=== PATIENT | male | born 1945 | race African-American/Black ===

== ENCOUNTER 2020-04-19 08:18 | Outpatient (CLI) | payer MEDICARE, SELFPAY ==
--- NOTE | ~2020-04-19 | CT_ITS ---
EXAMINATION: CT abdomen pelvis wo/w con EXAM DATE: 04/19/2020 09:26 INDICATION: Gross hematuria. TECHNIQUE: Spiral CT of the abdomen and pelvis was performed without contrast. The patient was then injected with small bolus intravenous Omnipaque 350, followed by delay of approximately 10 minutes to allow collecting system to opacify. A post contrast scan abdomen and pelvis was performed during inj ection of remaining contrast. A total of 130 cc intravenous contrast was administered. The dose-abran th product (DLP) for this examination was 1434.01 mGy-cm. The exposure was tailored according to pat ient size (auto mA exposure control), and iterative reconstruction (ASIR) was used as additional dose reduction technique. There is no prior study for comparison. FINDINGS: Large bilateral nephrolithiasis, measuring up to 1.1 cm on the right and 1.0 cm on the left . There is a 7.5 cm cyst in the left kidney, and a 5.5 cm cyst in the right kidney. Other smaller re nal cysts bilaterally. The kidneys enhance symmetrically. There are no suspicious renal lesions. T he calyces and opacified portions of ureters are unremarkable, without filling defects or focal suspi cious strictures. The bladder is unremarkable. There is moderate prostatomegaly. The liver, spleen, adrenal glands and pancreas are unremarkable. Gallbladder is unremarkable. No bi liary obstruction. There is no retroperitoneal or pelvic lymphadenopathy. There is mild scattered arteriosclerotic disease. Small umbilical fat-containing hernia. The appendix is normal. The stomach and small bowel are unremarkable. There is expected amount of c olonic stool. No free intraperitoneal gas. The heart is normal in size. There are no pericardial or pleural effusions. The lung bases are unremarkable. There are no osteoblastic or osteolytic les ions identified. Mild thoracolumbar scoliosis. IMPRESSION: 1. Large bilateral nephrolithiasis. Large renal cysts. 2. Moderate prostatomegaly. Reviewed, dictated and finalized at location B. S COUNTER SALESPERSON
[2020-04-19 09:05] LABS: Estimated Glomerular Filt Rate 59
== END 2020-04-19 08:19 | disposition home or self-care (01) ==
PROVIDERS: PCP Internal Medicine; Visit Provider Urology
DX: R31.0 Gross hematuria (principal); N20.0 Calculus of kidney; N28.1 Cyst of kidney, acquired; N40.0 Benign prostatic hyperplasia without lower urinary tract symptoms
CPT/HCPCS: 74178; Q9967

== ENCOUNTER 2020-04-26 10:21 | Outpatient (CLI) | payer MEDICARE, SELFPAY ==
[2020-04-26 10:51] LABS: INR 0.9; Prothrombin Time 12.8 Seconds (11.1-14.7)
[2020-04-26 10:52] LABS: Partial Thromboplastin Time 28.3 SECONDS (22.3-36.8)
== END 2020-04-26 10:22 | disposition home or self-care (01) ==
LOC: ANHSURGERY 10:23
PROVIDERS: PCP Internal Medicine; Visit Provider Urology
DX: N20.0 Calculus of kidney (principal); Z01.818 Encounter for other preprocedural examination
CPT/HCPCS: 36415; 85610; 85730; 87086

== ENCOUNTER → 2020-04-30 02:20 | Outpatient (CLI) | payer MEDICARE, SELFPAY ==
[2020-04-30 22:46] LABS: SARS-CoV-2 RNA PCR Negative
== END ==
PROVIDERS: PCP Internal Medicine; Visit Provider Urology
DX: Z01.812 Encounter for preprocedural laboratory examination (principal); Z20.822 Contact with and (suspected) exposure to COVID-19
CPT/HCPCS: C9803; U0003; U0005

== ENCOUNTER 2020-05-03 01:39 | Day surgery (SDC) | payer MEDICARE, SELFPAY ==
[2020-04-24 08:27] VITALS: BMI 26.6
--- NOTE | 2020-04-26 07:31 | P.HP_ITS ---
History of Present Illness History of Present Illness Consent: Risks, benefits, and alternatives have been discussed and questions answered. Patient agrees to proceed with procedure. Chief complaint: bilat kidney stones Narrative: Trev Padron is a 74 year old male recently underwent evaluation for transient painless gross hematuria. Cystoscopy showed BPH. CT scan of the abdomen and pelvis revealed bilateral renal stones up to 1 cm in each kidney. After discussion of options he has elected for ESWL. He is aware of alternative treatment options including percutaneous nephrolithotomy and ureteroscopy with laser lithotripsy of stones. Review of Systems Cardiovascular: Cardiovascular: Denies chest pain, Denies lightheadedness, Denies palpitations and Denies dyspnea Respiratory: Respiratory: Denies dyspnea Gastrointestinal: Gastrointestinal: Denies diarrhea, Denies nausea and Denies vomiting Genitourinary: Genitourinary: Denies hematuria and Denies dysuria Endocrine: Endocrine: Denies palpitations [facility] Social History Social History Smoking status: Never smoker Substance use: never Additional living arrangements comments: Spiritual care concerns: No Meds Home Medications and Allergies Home Medications Medication Instructions Recorded Confirmed Type finasteride 5 mg PO QAM 04/24/20 04/24/20 History sildenafil 100 mg PO DAILY PRN 04/24/20 04/24/20 History Allergies Allergy/AdvReac Type Severity Reaction Status Date / Time No Known Allergies Allergy Verified 04/24/20 08:23 Exam Const: General: no acute distress Resp: Effort & Inspection: normal respiratory effort GI: Inspection: non-distended GI Palp: No abdominal tenderness and No Guarding due to palpation present (GI) Auscultation: normal bowel sounds Assessment and Plan Assessment and plan (1) Bilateral kidney stones: Code(s): N20.0 - Calculus of kidney Status: Acute Assessment and Plan: * right ESWL
[2020-05-03] VITALS (10 sets, daily range): BP systolic 95–148; BP diastolic 68–89; PULSE 55–73; RESP 10–20; TEMP 35.9–36.2; O2SAT 100
--- NOTE | ~2020-05-03 | XR_ITS ---
EXAMINATION: XR abdomen/kub 1V EXAM DATE: 05/03/2020 07:11 INDICATION: For lithotripsy. TECHNIQUE: Frontal projection of the upper abdomen, frontal projection lower abdomen/pelvis for inter pretation. Correlation is made to CT abdomen 04/19/2020. FINDINGS: There are large bilateral calyceal stones, larger stone burden on the left. Moderate to la rge amount of colonic stool. Nonobstructive bowel gas pattern. Mild to moderate bony degenerative nabila nges. IMPRESSION: Large bilateral nephrolithiasis. Reviewed, dictated and finalized at location D. ENGINEER
--- NOTE | 2020-05-03 07:24 | P.PNAN_ITS ---
Anes - Initial Pre Proc Eval Procedure: Operation Date: 05/03/20 09:00 Proposed Procedures p Right Renal Extracorporeal Shock Wave Lithotripsy - Az Webster MD Date/Time: 05/03/20 07:24 Surgeon: Az Webster MD Pre Op Diagnosis: bilat kidney stones Patient Data Age: 74 Gender: M Height: 5 ft 9 in Weight: 82 kg Allergies Allergy/AdvReac Type Severity Reaction Status Date / Time No Known Allergies Allergy Verified 04/24/20 08:23 Home Medications Medication Instructions Recorded Confirmed Type finasteride 5 mg PO QAM 04/24/20 04/24/20 History sildenafil 100 mg PO DAILY PRN 04/24/20 04/24/20 History Patient hx anesthesia problems: none Family hx anesthesia problems: none [facility] Past Medical History Medical History BPH (benign prostatic hyperplasia) Social History Social History Smoking status: Never smoker Substance use: never Living arrangements: with family Additional living arrangements comments: Spiritual care concerns: No Anes - Eval Final PreProcedure Day of Procedure 05/03/20 07:24 Patient weight: overweight Heart: regular rate and rhythm Lungs: clear to auscultation Airway: Mallampati scale class II Neurological: alert and oriented Last oral intake: >/= 8 hours ASA classification: II Emergent: no Anesthetic plan: proceed Anesthesia type and monitoring: general LMA and standard monitoring Informed Consent: The patient's anesthetic plan and its attendant risks and benefits were discussed with the patient/family/POA. Questions were solicited and answers provided to the satisfaction of the patient/family/POA.
[2020-05-03] MEDS: LACTATED RINGERS 1,000 ML 30 ML IV CONT (07:40)
--- NOTE | 2020-05-03 08:18 | WPDHPUPDATE1 ---
History and Physical Update Update Date/Time: 05/03/20 08:18 History and Physical has been reviewed, including an updated exam of the patient. There are NO changes in the patient's condition. Risks, benefits, and alternatives have been discussed and questions answered. Patient agrees to proceed with procedure.
[2020-05-03] MEDS: ceFAZolin 2 GM/D5W 50 ML 2 GM/50 ML BAG IVPB (08:48)
--- NOTE | 2020-05-03 09:13 | P.OP_ITS ---
Procedure Note - Detailed Date of procedure: 05/03/20 Pre-op diagnosis: Bilat kidney stones Post-op diagnosis: same (Same) Procedure performed: Right ESWL Description of procedure: The patient was brought to the operative suite where he was placed in the supine position on the Dornier lithotripsy table. The focal point of the lithotripter was placed at a 10mm right renal calculus. A total of 2500 shocks were delivered at a power setting of 4. There appeared to be good fragmentation of the stone. The patient tolerated the procedure well and was taken to the recovery room in good condition. Anesthesia: GLMA Surgeon: Az Webster MD Child & Adolescent Psychiatrist: None Drains: No Packing: No Pathology: none sent Complications: No immediate complications Condition: stable Disposition: PACU
[2020-05-03] MEDS: fentaNYL CITRATE INJ (*CRX) 100 MCG/2 ML VIAL 25 MCG IV PUSH ×2 (09:40→10:00)
== END 2020-05-03 11:44 | disposition home or self-care (01) ==
PROVIDERS: PCP Internal Medicine; Visit Provider Urology
PROC: (CPT 50590; principal; 2020-05-03 09:00)
DX: N20.0 Calculus of kidney (principal); N40.0 Benign prostatic hyperplasia without lower urinary tract symptoms
CPT/HCPCS: 50590; 74018; A9270; J0690; J1100; J2405; J2704; J3010; J7120

== ENCOUNTER 2020-05-13 10:58 | Outpatient (CLI) | payer MEDICARE, SELFPAY ==
--- NOTE | ~2020-05-13 | XR_ITS ---
XR abdomen/kub 1V 05/13/2020 11:27 Indication: Gross hematuria Procedure: KUB Comparison: 05/03/2020 Findings: There are bilateral renal stones. There is a calcification in the pelvis, corresponding to distal ureteral stones seen on prior CT examination. Bowel gas pattern nonobstructive with moderate c olonic fecal loading. Moderate lumbar spondylosis with levoscoliosis. Impression: 1: Distal left ureteral stone near the expected location of the UVJ measuring 6 mm. 2: Bilateral nephrolithiasis. Reviewed, dictated and finalized at location A. Impression: 1: Distal left ureteral stone near the expected location of the UVJ measuring 6 mm. 2: Bilateral nephrolithiasis.
== END 2020-05-13 10:59 | disposition home or self-care (01) ==
PROVIDERS: PCP Internal Medicine; Visit Provider Urology
DX: R31.0 Gross hematuria (principal); N20.2 Calculus of kidney with calculus of ureter
CPT/HCPCS: 74018

== ENCOUNTER 2020-05-27 10:56 | Outpatient (CLI) | payer MEDICARE, SELFPAY ==
--- NOTE | ~2020-05-27 | XR_ITS ---
EXAMINATION: XR abdomen/kub 1V EXAM DATE: 05/27/2020 11:19 INDICATION: Bilateral kidney stones, follow-up. TECHNIQUE: Frontal projection of the upper abdomen, frontal projection lower abdomen/pelvis for inter pretation. Comparison is made to prior examination from 05/13/2020. Correlation was made with CT 2020. FINDINGS: Previously seen left pelvic calcification suspected to be ureteral stone measuring about 5 mm, position unchanged. This was nonobstructing on prior CT, no hydronephrosis or delayed nephrogram . Large bilateral nephrolithiasis also present, although some of the stones are obscured by bowel gas . Right inferior calyceal calcification has more appearance of multiple small stone fragments as oppose d to its more dense and solid appearance on the previous exam, probably following lithotripsy. Nonobs tructive bowel gas pattern. Mild lumbar levoscoliosis. IMPRESSION: 1. Bilateral nephrolithiasis, suspect interval lithotripsy on the right. 2. Persistent distal left UVJ region calcification, nonobstructing or intermittently obstructing sto ne. Reviewed, dictated and finalized at location A. IMPRESSION: 1. Bilateral nephrolithiasis, suspect interval lithotripsy on the right. 2. Persistent distal left UVJ region calcification, nonobstructing or intermit tently obstructing stone.
== END 2020-05-27 10:57 | disposition home or self-care (01) ==
LOC: ANHIMG 11:00
PROVIDERS: PCP Internal Medicine; Visit Provider Urology
DX: N20.0 Calculus of kidney (principal)
CPT/HCPCS: 74018

== ENCOUNTER 2020-06-07 09:27 | Outpatient (CLI) | payer MEDICARE, SELFPAY ==
[2020-06-07 10:06] LABS: INR 0.9; Prothrombin Time 12.4 Seconds (11.1-14.7)
[2020-06-07 10:07] LABS: Partial Thromboplastin Time 27.2 SECONDS (22.3-36.8)
== END 2020-06-07 09:28 | disposition home or self-care (01) ==
LOC: ANHSURGERY 09:29
PROVIDERS: PCP Internal Medicine; Visit Provider Urology
DX: N20.0 Calculus of kidney (principal); Z01.818 Encounter for other preprocedural examination
CPT/HCPCS: 36415; 85610; 85730; 87086

== ENCOUNTER → 2020-06-11 03:45 | Outpatient (CLI) | payer MEDICARE, SELFPAY ==
[2020-06-11 20:31] LABS: SARS-CoV-2 RNA PCR Negative
== END ==
PROVIDERS: PCP Internal Medicine; Visit Provider Urology
DX: Z01.812 Encounter for preprocedural laboratory examination (principal); Z20.822 Contact with and (suspected) exposure to COVID-19
CPT/HCPCS: C9803; U0003; U0005

== ENCOUNTER 2020-06-14 02:02 | Day surgery (SDC) | payer MEDICARE, SELFPAY ==
[2020-05-31 13:57] VITALS: BMI 26.6
--- NOTE | 2020-06-06 08:16 | PM.HPGS ---
History of Present Illness History of Present Illness Consent: Risks, benefits, and alternatives have been discussed and questions answered. Patient agrees to proceed with procedure. Chief complaint: Renal Stones Narrative: Trev Padron Sr. is a 74 year old male with a history of recurring urolithiasis. He recently presented with bilateral renal calculi and has undergone 1 ESWL to a large stone in his right kidney. Follow-up imaging shows fragmentation but several persistent pieces at a failed to pass. After discussion of options he has elected to proceed with a 2nd right ESWL before intervening for the stones in his left kidney. He is aware the risk of this procedure including, but not limited to, injury to the kidney with perinephric hematoma, persistent stone fragments. Review of Systems Cardiovascular: Cardiovascular: Denies chest pain, Denies lightheadedness, Denies palpitations and Denies dyspnea Respiratory: Respiratory: Denies dyspnea Gastrointestinal: Gastrointestinal: Denies diarrhea, Denies nausea and Denies vomiting Genitourinary: Genitourinary: Denies hematuria and Denies dysuria Endocrine: Endocrine: Denies palpitations [facility] Past Medical History Medical History BPH (benign prostatic hyperplasia) Social History Social History Smoking status: Never smoker Second hand tobacco smoke exposure: No Substance use: never Substance use type: does not use Additional living arrangements comments: Spiritual care concerns: No Meds Home Medications and Allergies Home Medications Medication Instructions Recorded Confirmed Type finasteride 5 mg PO QAM 04/24/20 05/31/20 History sildenafil 100 mg PO DAILY PRN 04/24/20 05/31/20 History Allergies Allergy/AdvReac Type Severity Reaction Status Date / Time No Known Allergies Allergy Verified 05/31/20 13:56 Exam Const: General: no acute distress Resp: Effort & Inspection: normal respiratory effort GI: Inspection: non-distended GI Palp: No abdominal tenderness and No Guarding due to palpation present (GI) Auscultation: normal bowel sounds Assessment and Plan Assessment and plan (1) Bilateral kidney stones: Code(s): N20.0 - Calculus of kidney Status: Acute Assessment and Plan: Right ESWL
--- NOTE | 2020-06-13 10:13 | WPDANESEPPF ---
Anes - Initial Pre Proc Eval Procedure: Operation Date: 06/14/20 10:30 Proposed Procedures p Right Extracorporeal Shock Wave Lithotripsy - Az Webster MD Date/Time: 06/13/20 10:13 Surgeon: Az Webster MD Pre Op Diagnosis: Renal Stones Patient Data Age: 74 Gender: M Height: 1.75 m Weight: 81.65 kg Allergies Allergy/AdvReac Type Severity Reaction Status Date / Time No Known Allergies Allergy Verified 05/31/20 13:56 Home Medications Medication Instructions Recorded Confirmed Type finasteride 5 mg PO QAM 04/24/20 05/31/20 History sildenafil 100 mg PO DAILY PRN 04/24/20 05/31/20 History Patient hx anesthesia problems: none Family hx anesthesia problems: none PMFSH Past Medical History Medical History BPH (benign prostatic hyperplasia) Social History Social History Smoking status: Never smoker Second hand tobacco smoke exposure: No Alcohol use details: STATES 1-2 DRINKS/MONTH Substance use: never Substance use type: does not use Living arrangements: with family Additional living arrangements comments: Spiritual care concerns: No Anes - Eval Final PreProcedure Day of Procedure 06/13/20 10:13 Patient weight: overweight Heart: regular rate and rhythm Lungs: clear to auscultation and normal air movement Airway: Mallampati scale class II Neurological: alert and oriented Last oral intake: >/= 8 hours ASA classification: II Emergent: no Anesthetic plan: proceed Anesthesia type and monitoring: general LMA Informed Consent: The patient's anesthetic plan and its attendant risks and benefits were discussed with the patient/family/POA. Questions were solicited and answers provided to the satisfaction of the patient/family/POA.
[2020-06-14] VITALS (10 sets, daily range): BP systolic 117–162; BP diastolic 72–94; PULSE 57–70; RESP 13–18; TEMP 36.2–36.4; O2SAT 98–100
--- NOTE | ~2020-06-14 | XR_ITS ---
XR abdomen/kub 1V DATE: 06/14/2020 08:42 INDICATION: Bilateral kidney stones. Lithotripsy. TECHNIQUE: AP projection, 2 views COMPARISON: 05/27/2020 KUB 04/19/2020 CT abdomen pelvis without and with IV contrast material FINDINGS: There is no significant change of bilateral multiple calcified kidney stones and 5 mm dista l left ureteral calculus since 05/27/2020. The psoas shadows are intact. No visceromegaly is evident. No evidence of bowel obstruction. Levoscoliosis and multilevel degenerative disc disease of the lumbar spine. The lung bases appear clear. Heart size appears normal. IMPRESSION: Bilateral nephrolithiasis and persistent 5 mm distal left ureteral calcified calculus Reviewed, dictated and finalized at Location A. Reviewed, dictated and finalized at location A.
--- NOTE | 2020-06-14 07:01 | WPDHPUPDATE1 ---
History and Physical Update Update Date/Time: 06/14/20 07:01 History and Physical has been reviewed, including an updated exam of the patient. There are NO changes in the patient's condition. Risks, benefits, and alternatives have been discussed and questions answered. Patient agrees to proceed with procedure.
[2020-06-14] MEDS: LACTATED RINGERS 1,000 ML 30 ML IV CONT (09:06)
[2020-06-14] MEDS: ceFAZolin 2 GM/D5W 50 ML 2 GM/50 ML BAG IVPB (09:41)
--- NOTE | 2020-06-14 09:51 | PM.PROC ---
Procedure Note - Detailed Date of procedure: 06/14/20 Pre-op diagnosis: Renal Stones Post-op diagnosis: same Procedure performed: Right ESWL Description of procedure: The patient was brought to the operative suite where he was placed in the supine position on the Dornier lithotripsy table. The focal point of the lithotripter was placed at a collection of residual fragments in the right kidney. A total of 2500 shocks were delivered at a power setting of 4. There appeared to be good fragmentation of the stone. The patient tolerated the procedure well and was taken to the recovery room in good condition. Anesthesia: GLMA Surgeon: Az Webster MD Estimated blood loss (mL): 0 Drains: No Packing: No Pathology: none sent Complications: No immediate complications Condition: stable Disposition: PACU
--- NOTE | 2020-06-14 11:03 | SUR.PHASEI ---
o2 removed at 1058.
== END 2020-06-14 12:02 | disposition home or self-care (01) ==
PROVIDERS: PCP Internal Medicine; Visit Provider Urology
PROC: (CPT 50590; principal; 2020-06-14 10:30)
DX: N20.0 Calculus of kidney (principal); N40.0 Benign prostatic hyperplasia without lower urinary tract symptoms
CPT/HCPCS: 50590; 74018; J0690; J1100; J2405; J2704; J7120

== ENCOUNTER 2020-06-24 09:28 | Outpatient (CLI) | payer MEDICARE, SELFPAY ==
--- NOTE | ~2020-06-24 | XR_ITS ---
EXAMINATION: XR abdomen/kub 1V INDICATION: Bilateral kidney stones, recent lithotripsy TECHNIQUE: Supine views of the abdomen were obtained on 2 radiographs. COMPARISON: 06/14/2020 FINDINGS: There is a 1.4 cm cluster of stone fragments in the right kidney lower pole which is decrea sed in density since the comparison examination, consistent with interval lithotripsy. Stable stones measuring 3 mm and 4 mm are seen in the upper pole of the right kidney. There is a stable 1.4 cm ston e of the left kidney lower pole. Also seen is a 10 mm stone of the left mid kidney. No stone fragment s are identified along the expected courses of the ureters. Phleboliths are noted in the pelvis. The bowel gas pattern is normal. IMPRESSION: 1. Bilateral nephrolithiasis with decrease in density of a right kidney lower pole stone since the pr ior examination, likely reflecting treatment change. Reviewed, dictated and finalized at location A. IMPRESSION: 1. Bilateral nephrolithiasis with decrease in density of a right kidney lower p ole stone since the prior examination, likely reflecting treatment change.
== END 2020-06-24 09:29 | disposition home or self-care (01) ==
LOC: ANHIMG 09:33
PROVIDERS: PCP Internal Medicine; Visit Provider Urology
DX: N20.2 Calculus of kidney with calculus of ureter (principal)
CPT/HCPCS: 74018